=== PATIENT | male | born 1955 | race Caucasian/White ===

== ENCOUNTER 2024-03-27 08:57 | Outpatient (AMB) | payer MEDICARE, SELFPAY ==
--- NOTE | 2024-03-27 09:14 | A.OFFPC_ITS ---
Vital Signs 03/27/24 09:19 Height 5 ft 8 in Weight 180 lb BMI 27.4 BP 124/64 Blood Pressure Location Rt brachial Position Sitting Respiration 14 Pulse 84 Pulse Source Pulse Oximeter Temp 98.6 F Temp Source Oral Pulse Oximetry (%) 100 Oxygen Delivery Method Room Air Intake Visit Reasons: transfer from [facility] Heart procedure Intake Note: New patient visit Gate Keeper Required: No Allergies No Known Allergies Allergy (Verified 03/27/24 09:15) Medication List - Last Reconciled 03/27/24 by Nga Thomas PA-C aspirin 81 mg PO DAILY atorvastatin 40 mg PO DAILY clopidogrel 75 mg PO DAILY losartan 50 mg PO DAILY nitroglycerin 0.6 mg sublingual BID Tobacco use date assessed: 03/27/24 Fall risk assessment: No Falls in past year Last assessed Fall Risk: 03/27/24 Dental Screening Dental Screen Date: 03/27/24 Did you have a dental visit in the last 12 months?: Yes Did you have a dental problem in the last 6 months where you did not have access to dental care?: No Was dental information given to patient?: Patient has dentist HPI transfer from [facility] Heart procedure HPI Details Patient is a 68-year-old male with a significant past medical history of former smoker (<5 years), hypertension, hyperlipidemia, anxiety, depression, and CAD, s/p PCI with placement of stent who presents today for a hospital follow up and transfer of care. He was previously a patient at [facility] of Dr. Salazra. CV: On 01/18/2024 he presented for an elective cardiac catheterization after having an abnormal treadmill stress test. The catheterization showed severe proximal LAD stenosis. He underwent PCI with placement of stent. He also had balloon angioplasty with excellent angioplasty results. There was also moderate LCx and RCA disease. Has been feeling well since his PCI with Dr. Guo. States that his energy is significantly improved. He denies any chest pain or shortness a breath. His blood pressure today in the office is 124/64. He is currently on aspirin, Plavix, atorvastatin 40 mg, and losartan 50 mg. Denies needing to use nitro. He is going to cardiac rehab and eating healthy. Psych: States that his anxiety and depression are well-controlled with lorazepam as needed. He gets 1-2 prescriptions a year of the lorazepam. He typically gets it filled in the summertime because he gets anxious with cherrie henriquez. They do a lot of traveling in the summer and go camping. Colonoscopy: Due this year. States that he was called by [facility] and plans to make an appointment with them. PSA: Cesar Does not recall ever having an AAA screen. He is a former smoker. He has not had his carotids screened. He does sometimes get a little lightheaded if he gets up quickly or bends down and lifts this had fast. [facility] Medical History (Updated 03/27/24 @ 09:58 by Margarita Cooper CMA) Palpitations Seasonal allergies Onychomycosis Asthma Former smoker Generalized anxiety disorder with panic attacks IFG (impaired fasting glucose) CAD, multiple vessel Hyperlipidemia HTN (hypertension), benign Surgical History (Updated 03/27/24 @ 09:37 by Nga Thomas PA-C) S/P coronary artery stent placement Family History (Updated 03/27/24 @ 09:57 by Margarita Cooper CMA) Mother Asthma HTN (hypertension) Hypercholesteremia Social History (Updated 03/27/24 @ 09:17 by Margarita Cooper CMA) Housing: House Patient Tobacco Use Status: Former Tobacco user Cigarette Packs Per Day: 0.5 Years Smoked: 2 years quit 47 years ago e-Cigarette/Vaping Use: Never Used Substance Use Type: Former Substance User and Marijuana service: Yes Current occupational status: employed Current occupation: self employed Current occupational exposures/hazards: No Cognitive needs: No Hearing needs: No Vision needs: No Questionnaire PHQ-9 Over the last 2 weeks, how often have you been bothered by any of the following problems? 1. Little interest or pleasure in doing things: not at all 2. Feeling down, depressed, or hopeless: not at all 3. Trouble falling or staying asleep, or sleeping too much: not at all 4. Feeling tired or having little energy: not at all 5. Poor appetite or overeating: not at all 6. Feeling bad about yourself - or that you are a failure or have let yourself or your family down: not at all 7. Trouble concentrating on things, such as reading the newspaper or watching television: not at all 8. Moving or speaking so slowly that other people could have noticed. Or the opposite - being so fidgety or restless that you have been moving around a lot more than usual: not at all 9. Thoughts that you would be better off or of hurting yourself in some way: not at all Total score: 0 Depression Screening Interpretation: Negative Depression Screening Done: Yes [id number] - PHQ-9 Billing: Yes Source: Developed by Drs. Papi Patterson, Elizabeth Khan, Driss Marquez and colleagues, with an educational ana from [employer]. Thrive Questionnaire Date Thrive assessed: 03/27/24 I am a: Patient What is your living situation today?: I have a steady place to live Within the past 12 months, did the food you bought not last and you didn't have the money to get more?: Never true Within the past 12 months, did you worry whether your food would run out before you got money to buy more?: Never true Do you have trouble paying for medicines?: No Do you have trouble getting transportation to medical appointments?: No Do you have trouble paying your heating and electricity bill?: No Do you have trouble taking care of your child, family member or friend?: No Do you have trouble with day-to-day activities such as bathing, preparing meals, shopping, managing finances, etc.?: No Are you currently unemployed and looking for a job?: No Are you interested in more education?: No Please select the resources that you would like help with: None Currently or been in a relationship where the following occur: no concerns reported THRIVE Score: 0 AUDIT C Alcohol Use Questionnaire (AUDIT-C) 1. How often do you have a drink containing alcohol?: 2-4 times a month 2. How many drinks containing alcohol do you have on a typical day when you are drinking?: 1 or 2 3. How often do you have six or more drinks on one occasion?: Never Total Score: 2 MARKUS-7 AMB Questionnaire MARKUS-7 Date MARKUS - 7 assessed: 03/27/24 Feeling nervous, anxious, or on edge: 0 = Not at all Not being able to stop or control worryin = Not at all Worrying too much about different things: 0 = Not at all Trouble relaxin = Not at all Being so restless that it is hard to sit still: 0 = Not at all Becoming easily annoyed or irritable: 0 = Not at all Feeling afraid as if something awful might happen: 0 = Not at all Total MARKUS-7 score (0-4 normal; 5-9 mild; 10-14 moderate; 15-21 severe): 0 Source: Developed by Drs. Papi Patterson, Elizabeth Khan, Driss Marquez and colleagues, with an educational ana from [employer]. MARKUS-7 Assessment Billing MARKUS-7 Assessment Tool: MARKUS-7 Assessment 73674 Physical exam (Primary Care) Vital Signs: Last Vital Signs Temp 98.6 F 03/27/24 09:19 Pulse 84 03/27/24 09:19 Resp 14 03/27/24 09:19 BP 124/64 03/27/24 09:19 Pulse Ox 100 03/27/24 09:19 Oxygen Delivery Method Room Air 03/27/24 09:19 BMI result Body Mass Index 42.6 The BMI listed above is incorrect. His BMI is 27.4. I did adjust this in the vitals. Tobacco/Smoking Status: Tobacco use Status Tobacco use date assessed 03/27/24 03/27/24 09:24 Patient Tobacco Use Status Former Tobacco user 03/27/24 09:24 e-Cigarette/Vaping Use Never Used 03/27/24 09:24 PHQ-9: PHQ-9 Score PHQ-9: Total score 0 03/27/24 09:24 Depression Screening Interpretation: Negative Thrive Assessment: Date of Thrive Assessment Date Thrive assessed 03/27/24 03/27/24 09:24 Currently or been in a relationship where the following occur: no concerns reported Const Orientation/consciousness: patient oriented x3 HENMT Ears: hearing grossly normal bilaterally and TM's normal bilaterally Eyes Pupils: Equal, round and reactive pupils present EOM: EOMs intact bilaterally Neck Thyroid: Thyroid normal Carotids: other (No bruit noted) Lymphatic: no lymphadenopathy noted Resp Auscultation: clear to auscultation bilaterally Cardio Rate: regular rate Rhythm: regular rhythm Heart sounds: S1 normal heart sound present and S2 normal heart sound present GI Inspection: Yes normal to inspection Palpation (GI): Soft to palpation and Other GI palpation findings present (nontender, no cva tenderness) Auscultation: normoactive bowel sounds Rectal Exam - Male: Yes deferred Skin General skin exam: no rashes or lesions noted Neuro General: patient oriented x3, gait normal and no focal motor deficits Cranial nerves: Yes Equal, round and reactive pupils present Assessment and Plan Assessment & Plan (1) HTN (hypertension), benign: Code(s): I10 - Essential (primary) hypertension Plan: WNL. continue current treatment meds (2) Hyperlipidemia: Code(s): E78.5 - Hyperlipidemia, unspecified Qualifiers: Hyperlipidemia type: pure hypercholesterolemia Qualified Code(s): E78.00 - Pure hypercholesterolemia, unspecified Plan: tolerating atorvastatin. no myalgias. will check lfts and lipids. (3) CAD, multiple vessel: Code(s): I25.10 - Atherosclerotic heart disease of [place] coronary artery without angina pectoris Plan: continue follow up with Dr. Guo. (4) S/P coronary artery stent placement: Code(s): Z95.5 - Presence of coronary angioplasty implant and graft Plan: feeling well (5) IFG (impaired fasting glucose): Code(s): R73.01 - Impaired fasting glucose Plan: a1c ordered. will follow up pending test results (6) Generalized anxiety disorder with panic attacks: Code(s): F41.1 - Generalized anxiety disorder; F41.0 - Panic disorder [episodic paroxysmal anxiety] Plan: Will refill ativan today for travel. We discussed risks and benefits and adverse effects of this medication. He has been on this for about 30 years as needed. Plan Labs ordered today including CBC, CMP, lipids, TSH and PSA. Aortic aneurysm screening ordered. Carotid ultrasound given the postural dizziness and history of CAD and hyperlipidemia. We will follow up pending test results. Advised patient to schedule his colonoscopy. Follow up in 3 months. Sooner if needed. Patient understands and agrees with the plan. Orders: Orders Complete Blood Count Auto Diff Today E78.5 - Hyperlipidemia, unspecified, F41.0 - Panic disorder [episodic paroxysmal anxiety], F41.1 - Generalized anxiety disorder, I10 - Essential (primary) hypertension, R73.01 - Impaired fasting glucose, Z95.5 - Presence of coronary angioplasty implant and graft Comprehensive Met. Panel Today E78.5 - Hyperlipidemia, unspecified, F41.0 - Panic disorder [episodic paroxysmal anxiety], F41.1 - Generalized anxiety disorder, I10 - Essential (primary) hypertension, R73.01 - Impaired fasting glucose, Z95.5 - Presence of coronary angioplasty implant and graft US carotid duplex BI Today E78.00 - Pure hypercholesterolemia, unspecified, I10 - Essential (primary) hypertension, I25.10 - Atherosclerotic heart disease of [place] coronary artery without angina pectoris, R42 - Dizziness and giddiness US abdominal aortic aneurysm Today Z13.6 - Encounter for screening for cardiovascular disorders, Z87.891 - Personal history of nicotine dependence PSA, Ultra Sensitive Today E78.5 - Hyperlipidemia, unspecified, F41.0 - Panic disorder [episodic paroxysmal anxiety], F41.1 - Generalized anxiety disorder, I10 - Essential (primary) hypertension, R06.09 - Other forms of dyspnea, R73.01 - Impaired fasting glucose, Z95.5 - Presence of coronary angioplasty implant and graft TSH reflex Free T4 Today E78.5 - Hyperlipidemia, unspecified, F41.0 - Panic disorder [episodic paroxysmal anxiety], F41.1 - Generalized anxiety disorder, I10 - Essential (primary) hypertension, R73.01 - Impaired fasting glucose, Z95.5 - Presence of coronary angioplasty implant and graft Lipid Panel Today E78.5 - Hyperlipidemia, unspecified, F41.0 - Panic disorder [episodic paroxysmal anxiety], F41.1 - Generalized anxiety disorder, I10 - Essential (primary) hypertension, R73.01 - Impaired fasting glucose, Z95.5 - Presence of coronary angioplasty implant and graft Hemoglobin A1c Today R73.01 - Impaired fasting glucose Medications: New lorazepam 0.5 mg PO BID 30 days PRN 60 tabs 0RF anxiety lorazepam 0.5 mg PO BID 30 days PRN 30 tabs 0RF anxiety Coding Level of Care Code Est Pt Level 4 (55585) Complex EM visit Add On G2211 Diagnoses HTN (hypertension), benign I10 Pure hypercholesterolemia E78.00 Hyperlipidemia type: pure hypercholesterolemia CAD, multiple vessel I25.10 S/P coronary artery stent placement Z95.5 IFG (impaired fasting glucose) R73.01 Generalized anxiety disorder with panic attacks F41.1; F41.0 Additional Codes MARKUS-7 Assessment Billing - MARKUS-7 Assessment Tool: MARKUS-7 Assessment [id number] ([id number])
[2024-03-27 09:19] VITALS: BP 124/64; PULSE 84; RESP 14; TEMP 37; O2SAT 100; BMI 27.4
== END 2024-03-27 09:57 | disposition home or self-care (01) ==
PROVIDERS: Visit Provider Physician Assistant
DX: I10 Essential (primary) hypertension (principal); E78.00 Pure hypercholesterolemia, unspecified; I25.10 Atherosclerotic heart disease of native coronary artery without angina pectoris; Z95.5 Presence of coronary angioplasty implant and graft; R73.01 Impaired fasting glucose; F41.1 Generalized anxiety disorder; F41.0 Panic disorder [episodic paroxysmal anxiety]
CPT/HCPCS: 99214; G2211

== ENCOUNTER 2024-04-17 08:19 | Outpatient (REF) | payer MEDICARE, SELFPAY ==
--- NOTE | ~2024-04-17 | US_ITS ---
EXAMINATION: US EXTRACRANIAL CAROTID DUPLEX, BILATERAL CLINICAL INFORMATION: Former smoker. Coronary artery disease. COMPARISON: None available. TECHNIQUE: Real-time ultrasound and Doppler techniques (integrating B-mode 2-D vascular images, Doppler spectral analysis and color-flow Doppler imaging) were utilized to interrogate the extracranial carotid arteries, the vertebral arteries and proximal subclavian arteries bilaterally. The degree of stenosis is determined by criteria similar to NASCET. FINDINGS: Right Side: 1. There is mild atherosclerotic plaque seen in the bifurcation/proximal ICA region. 2. The common carotid artery PSV proximally is 132 cm/s and distally 109 cm/s. 3. The proximal internal carotid artery velocities are 90 cm/s systolic and 29 cm/s diastolic. 4. The proximal external carotid artery PSV is 94 cm/s. 5. The vertebral artery shows antegrade flow. 6. The subclavian artery waveforms are normal. Left Side: 1. There is mild atherosclerotic plaque seen in the bifurcation/proximal ICA region. 2. The common carotid artery PSV proximally is 147 cm/s and distally 87 cm/s. 3. The proximal internal carotid artery velocities are 77 cm/s systolic and 29 cm/s diastolic. 4. The proximal external carotid artery PSV is 91 cm/s. 5. The vertebral artery shows antegrade flow. 6. The subclavian artery waveforms are normal. US/US carotid duplex BI IMPRESSION: 1. RIGHT: Minimal, non-hemodynamically significant stenosis of the proximal right internal carotid artery corresponding to a 0-49% stenosis by velocity criteria. 2. LEFT: Minimal, non-hemodynamically significant stenosis of the proximal left internal carotid artery corresponding to a 0-49% stenosis by velocity criteria.
--- NOTE | ~2024-04-17 | US_ITS ---
EXAMINATION: US RETROPERITONEAL LIMITED (AORTA) CLINICAL INFORMATION: Encountered for screening for cardiovascular disorders. COMPARISON: None available. TECHNIQUE: Rosado-scale, color Doppler and spectral Doppler evaluation of the abdominal aorta. FINDINGS: The aorta is mildly atherosclerotic. The measurements of the aorta in maximum AP and transverse dimensions respectively are as follows: Proximal: 2.1 x 1.7 cm. Mid: 1.8 x 1.8 cm. Distal: 1.2 x 1.4 cm. PSV: 84 cm/s. The measurements of the common iliac arteries in maximum AP and TRV dimensions are as follows: Right Common Iliac Artery: 1.1 x 1.1 cm. Left Common Iliac Artery: 1.3 x 1.1 cm. US/US abdominal aortic aneurysm IMPRESSION: Negative for abdominal aortic aneurysm.
== END 2024-04-17 08:20 | disposition home or self-care (01) ==
LOC: HO.US 08:19
PROVIDERS: PCP Physician Assistant; Visit Provider Physician Assistant
DX: I25.10 Atherosclerotic heart disease of native coronary artery without angina pectoris (principal); E78.00 Pure hypercholesterolemia, unspecified; I10 Essential (primary) hypertension; R42 Dizziness and giddiness; Z87.891 Personal history of nicotine dependence
CPT/HCPCS: 76706; 93880

== ENCOUNTER 2024-06-19 08:08 | Outpatient (REF) | payer MEDICARE, SELFPAY ==
[2024-06-19 10:21] LABS: MANUAL DIFF FLAG NO
[2024-06-19 10:25] LABS: Basophils Absolute Auto 0.1 X10*3/uL (0.0-0.2); Basophils Percent Auto 1.3 % (0-2); Eosinophils Absolute Auto 0.4 X10*3/uL (0.0-0.4); Hematocrit 43.7 % (42.0-52.0); Hemoglobin 14.5 g/dl (14.0-18.0); Imm Gran Abs Auto 0.01 X10*3/uL (0.00-0.03); Imm Gran Pct Auto 0.2 % (0.0-0.4); Lymphocytes Absolute Auto 1.1 X10*3/uL (1.2-4.9); Lymphocytes Percent Auto 23.7 % (20-40); Mean Corpuscular HGB Conc 33.2 g/dl (31.0-36.0); Mean Corpuscular Hemoglobin 31.9 pg (27.0-33.0); Mean Corpuscular Volume 96.3 fL (80.0-98.0); Mean Platelet Volume 10.4 fL (9.4-12.4); Monocytes Absolute Auto 0.7 X10*3/uL (0.1-1.2); Neutrophils Absolute Auto 2.5 x10*3/uL (2.0-8.3); Neutrophils Percent Auto 51.8 % (45-73); Platelet Count 225 X10*3/uL (160-400); Red Blood Count 4.54 X10*6/uL (4.60-5.80); Red Cell Distribution Width 12.4 % (11.0-16.0); White Blood Count 4.7 X10*3/uL (4.8-10.8)
[2024-06-19 10:43] LABS: Estimated Average Glucose 117 mg/dL; Hemoglobin A1c % 5.7 % (<6.0)
[2024-06-19 11:09] LABS: Alanine Aminotransferase 24 U/L (0-40); Albumin Level 4.7 g/dL (3.5-5.0); Alkaline Phosphatase 59 U/L (39-117); Anion Gap 14 (12-20); Aspartate Amino Transferase 24 U/L (5-37); Bilirubin Total 0.4 mg/dL (0.0-1.0); Blood Urea Nitrogen 14 mg/dL (9-16); Carbon Dioxide 27 mmol/L (22-29); Chloride 104 mmol/L (96-108); Cholesterol 141 mg/dL (<200); Estimated Glomerular Filt Rate > 60; Glucose Random 107 mg/dL (60-115); HDL Cholesterol 36 mg/dL (>40); LDL Cholesterol Calculated 84 mg/dL (<100); Potassium 4.6 mmol/L (3.3-5.1); Sodium 140 mmol/L (135-145); Total Protein 7.6 g/dL (6.5-8.0); Triglycerides 107 mg/dL (<150)
[2024-06-19 11:30] LABS: TSH reflex Free T4 1.29 uIU/mL (0.32-4.0)
[2024-07-04 02:03] LABS: PSA, Ultra Sensitive 1.86 ng/mL
== END 2024-06-19 08:09 | disposition home or self-care (01) ==
LOC: HO.HMGCLDS 08:08
PROVIDERS: PCP Physician Assistant; Visit Provider Physician Assistant
DX: Z12.5 Encounter for screening for malignant neoplasm of prostate (principal); F41.1 Generalized anxiety disorder; F41.0 Panic disorder [episodic paroxysmal anxiety]; R73.01 Impaired fasting glucose; E78.5 Hyperlipidemia, unspecified; I10 Essential (primary) hypertension; R06.09 Other forms of dyspnea; Z95.5 Presence of coronary angioplasty implant and graft
CPT/HCPCS: 36415; 80053; 80061; 83036; 84153; 84443; 85025

== ENCOUNTER 2024-06-25 09:43 | Outpatient (AMB) | payer OTHER, SELFPAY ==
--- NOTE | 2024-06-25 10:00 | MHC.PC.OV ---
Vital Signs 06/25/24 10:06 Height 5 ft 8 in Weight 169 lb 8 oz BMI 25.8 BP 118/82 Blood Pressure Location Lt brachial Position Sitting Respiration 14 Pulse 72 Pulse Source Pulse Oximeter Pulse Oximetry (%) 98 Oxygen Delivery Method Room Air Intake Visit Reasons: f/u bp, anxiety Intake Note: Follow up htn and anxiety. Blood work results. Allergies No Known Allergies Allergy (Verified 03/27/24 09:15) Medication List - Last Reconciled 06/25/24 by Nga Thomas PA-C aspirin 81 mg PO DAILY atorvastatin 40 mg PO DAILY clopidogrel 75 mg PO DAILY lorazepam 0.5 mg PO BID PRN 30 days losartan 50 mg PO DAILY nitroglycerin 0.6 mg sublingual BID Tobacco use date assessed: 03/27/24 Dental Screening Dental Screen Date: 03/27/24 HPI f/u bp, anxiety HPI Details Patient is a 68-year-old male with a significant past medical history of former smoker (<5 years), hypertension, hyperlipidemia, anxiety, depression, and CAD, s/p PCI with placement of stent who presents today for a follow up. He was previously a patient at [facility] of Dr. Salazar. -he does complain today that his right eye is itchy, watery and was crusted this morning. He wonders if he has pink eye. It is not painful and no vision changes but it does feel gritty. He has not tried anything for this. CV: His blood pressure today in the office is 118/82. He is currently on aspirin, Plavix, atorvastatin 40 mg, and losartan 50 mg. Denies needing to use nitro. He is going to cardiac rehab and eating healthy. Psych: States that his anxiety and depression are well-controlled with lorazepam as needed. He gets 1-2 prescriptions a year of the lorazepam. He typically gets it filled in the summertime because he gets anxious with traveling. They do a lot of traveling in the summer and go camping. Endo: He is a prediabetic and states that he does eat muffins, drinks soda sometimes and has cereal and waffles frequently in the mornings. He does have a family history of diabetes. He believes it is type 2 and states that most people were just managed with their diet. Colonoscopy: Due this year. States that he was called by [facility] and plans to make an appointment with them. PSA: Overdue-pending [facility] Medical History (Updated 06/25/24 @ 13:01 by Nga Thomas PA-C) Palpitations Seasonal allergies Onychomycosis Asthma Former smoker Generalized anxiety disorder with panic attacks IFG (impaired fasting glucose) CAD, multiple vessel Hyperlipidemia HTN (hypertension), benign Surgical History (Updated 03/27/24 @ 09:37 by Nga Thomas PA-C) S/P coronary artery stent placement Family History (Updated 03/27/24 @ 09:57 by Margarita Cooper CMA) Mother Asthma HTN (hypertension) Hypercholesteremia Social History (Updated 03/27/24 @ 09:17 by Margarita Cooper CMA) Housing: House Patient Tobacco Use Status: Former Tobacco user Cigarette Packs Per Day: 0.5 Years Smoked: 2 years quit 47 years ago e-Cigarette/Vaping Use: Never Used Substance Use Type: Former Substance User and Marijuana service: Yes Current occupational status: employed Current occupation: self employed Current occupational exposures/hazards: No Cognitive needs: No Hearing needs: No Vision needs: No Questionnaire Thrive Questionnaire Date Thrive assessed: 03/27/24 MARKUS-7 AMB Questionnaire MARKUS-7 Date MARKUS - 7 assessed: 03/27/24 Source: Developed by Drs. Papi Patterson, Elizabeth Khan, Driss Marquez and colleagues, with an educational ana from [employer]. Physical exam (Primary Care) Vital Signs: Last Vital Signs Pulse 72 06/25/24 10:06 Resp 14 06/25/24 10:06 BP 118/82 06/25/24 10:06 Pulse Ox 98 06/25/24 10:06 Oxygen Delivery Method Room Air 06/25/24 10:06 BMI result Body Mass Index 25.8 Tobacco/Smoking Status: Tobacco use Status Tobacco use date assessed 03/27/24 06/25/24 10:00 Patient Tobacco Use Status Former Tobacco user 06/25/24 10:00 e-Cigarette/Vaping Use Never Used 06/25/24 10:00 Thrive Assessment: Date of Thrive Assessment Date Thrive assessed 03/27/24 06/25/24 10:00 Const Orientation/consciousness: patient oriented x3 HENMT Ears: hearing grossly normal bilaterally General nose exam: No nasal polyps present Face and sinus: Yes sinuses nontender Eyes Eyelids: Yes eyelids normal Conjunctivae: conjunctival abnormal right conjunctival injection and discharge purulent Sclerae: sclerae normal Corneas: corneas normal Pupils: Equal, round and reactive pupils present EOM: EOMs intact bilaterally Direct Ophthalmoscopy: normal light reflex Neck Thyroid: Thyroid normal Lymphatic: no lymphadenopathy noted Resp Auscultation: clear to auscultation bilaterally Cardio Rate: regular rate Rhythm: regular rhythm Heart sounds: S1 normal heart sound present and S2 normal heart sound present GI Inspection: Yes normal to inspection Palpation (GI): Soft to palpation and Other GI palpation findings present (nontender, no cva tenderness) Auscultation: normoactive bowel sounds Rectal Exam - Male: Yes deferred Skin General skin exam: no rashes or lesions noted Neuro General: patient oriented x3, gait normal and no focal motor deficits Cranial nerves: Yes Equal, round and reactive pupils present Results Reviewed Results Reviewed: US/US carotid duplex BI IMPRESSION: 1. RIGHT: Minimal, non-hemodynamically significant stenosis of the proximal right internal carotid artery corresponding to a 0-49% stenosis by velocity criteria. 2. LEFT: Minimal, non-hemodynamically significant stenosis of the proximal left internal carotid artery corresponding to a 0-49% stenosis by velocity criteria. Laboratory Tests 06/19/24 08:12 WBC 4.7 L RBC 4.54 L Hgb 14.5 Hct 43.7 Plt Count 225 Sodium 140 Potassium 4.6 Chloride 104 BUN 14 Creatinine 0.89 Estimated GFR > 60 Estimat Average Glucose 117 Hemoglobin A1c % 5.7 Calcium 10.0 AST 24 ALT 24 Triglycerides 107 Cholesterol 141 LDL Cholesterol, Calc 84 HDL Cholesterol 36 L Assessment and Plan Assessment & Plan (1) Prediabetes: Code(s): R73.03 - Prediabetes Plan: a1c 5.7. discussed diet changes, limiting pastries and pasta. he is going to cut out soda. (2) Hyperlipidemia: Code(s): E78.5 - Hyperlipidemia, unspecified Qualifiers: Hyperlipidemia type: pure hypercholesterolemia Qualified Code(s): E78.00 - Pure hypercholesterolemia, unspecified Plan: continue lipitor 40 mg (3) HTN (hypertension), benign: Code(s): I10 - Essential (primary) hypertension Plan: wnl continue current plan (4) Bacterial conjunctivitis of right eye: Code(s): H10.9 - Unspecified conjunctivitis Plan: We will start erythromycin ointment. Advised to follow up if no improvement or if anything worsens or changes. Encouraged warm compresses. Orders: Orders Lipid Panel 6 Months E78.00 - Pure hypercholesterolemia, unspecified, I10 - Essential (primary) hypertension, R73.03 - Prediabetes Complete Blood Count Auto Diff 6 Months E78.00 - Pure hypercholesterolemia, unspecified, I10 - Essential (primary) hypertension, R73.03 - Prediabetes Comprehensive [place]. Panel Fast 6 Months E78.00 - Pure hypercholesterolemia, unspecified, I10 - Essential (primary) hypertension, R73.03 - Prediabetes Hemoglobin A1c 6 Months E78.00 - Pure hypercholesterolemia, unspecified, I10 - Essential (primary) hypertension, R73.03 - Prediabetes Medications: New erythromycin 1 appl ophthalmic-Right BID 10 days 3.5 grams 0RF clotrimazole 1% 1 appl topical BID 2 weeks 45 grams 1RF Coding Level of Care Code Est Pt Level 4 (31785) Complex EM visit Add On G2211 Diagnoses Prediabetes R73.03 Pure hypercholesterolemia E78.00 Hyperlipidemia type: pure hypercholesterolemia HTN (hypertension), benign I10 Bacterial conjunctivitis of right eye H10.9
[2024-06-25 10:06] VITALS: BP 118/82; PULSE 72; RESP 14; O2SAT 98; BMI 25.8
== END 2024-06-25 11:17 | disposition home or self-care (01) ==
PROVIDERS: PCP Physician Assistant; Visit Provider Physician Assistant
DX: R73.03 Prediabetes (principal); E78.00 Pure hypercholesterolemia, unspecified; I10 Essential (primary) hypertension; H10.9 Unspecified conjunctivitis
CPT/HCPCS: 99214

== ENCOUNTER 2024-12-31 10:10 | Outpatient (AMB) | payer MEDICARE, SELFPAY ==
--- NOTE | 2024-12-31 10:18 | A.OFFPC_ITS ---
Vital Signs 12/31/24 10:20 Height 5 ft 8 in Weight 176 lb 6 oz BMI 26.8 BP 138/72 Blood Pressure Location Lt brachial Respiration 14 Pulse 70 Pulse Source Pulse Oximeter Pulse Oximetry (%) 98 Oxygen Delivery Method Room Air Intake Visit Reasons: bp follow up Intake Note: Blood pressure follow. Had echo done in September 2024. Needs refill on Lorazepam. [employer] Required: No Allergies No Known Allergies Allergy (Verified 12/31/24 10:19) Medication List - Last Reconciled 12/31/24 by Nga Thomas PA-C aspirin 81 mg PO DAILY atorvastatin 40 mg PO DAILY clopidogrel 75 mg PO DAILY clotrimazole 1% 1 appl topical BID 2 weeks erythromycin 1 appl ophthalmic-Right BID 10 days fluticasone propionate 50 mcg/actuation (Flonase Allergy Relief) 1 spray intranasal BID lorazepam 0.5 mg PO BID PRN 30 days losartan 50 mg PO DAILY nitroglycerin 0.6 mg sublingual BID Tobacco use date assessed: 03/27/24 Dental Screening Dental Screen Date: 03/27/24 HPI bp follow up HPI Details Patient is a 69-year-old male with a significant past medical history of former smoker (<5 years), hypertension, hyperlipidemia, anxiety, depression, and CAD, s/p PCI with placement of stent who presents today for a follow up. CV: His blood pressure today in the office is 138/72. He is currently on aspirin, Plavix, atorvastatin 40 mg, and losartan 50 mg. Denies needing to use nitro. He is following with Dr. Guo. He is s/p LAD stent 02/03/2024. He did just follow with cardiology and had an echo which was overall WNL and unchanged. Psych: States that his anxiety and depression are well-controlled with lorazepam as needed. He gets 1-2 prescriptions a year of the lorazepam. He typically gets it filled in the summertime because he gets anxious with traveling. They do a lot of traveling in the summer and go camping. Needs refill today. Endo: He is a prediabetic with his last A1c of 5.7 and states that he does eat muffins, drinks soda sometimes and has cereal and waffles frequently in the mornings. He does have a family history of diabetes. He believes it is type 2 and states that most people were just managed with their diet. Colonoscopy: Due this year. States that he was called by [facility] and plans to make an appointment with them. PSA: WNL -june 2024 [facility] Medical History (Updated 06/25/24 @ 13:01 by Nga Thomas PA-C) Palpitations Seasonal allergies Onychomycosis Asthma Former smoker Generalized anxiety disorder with panic attacks IFG (impaired fasting glucose) CAD, multiple vessel Hyperlipidemia HTN (hypertension), benign Surgical History (Updated 03/27/24 @ 09:37 by Nga Thomas PA-C) S/P coronary artery stent placement Family History (Updated 03/27/24 @ 09:57 by Margarita Cooper CMA) Mother Asthma HTN (hypertension) Hypercholesteremia Social History (Updated 03/27/24 @ 09:17 by Margarita Cooper CMA) Housing: House Alcohol intake: current Patient Tobacco Use Status: Former Tobacco user Cigarette Packs Per Day: 0.5 Years Smoked: 2 years quit 47 years ago e-Cigarette/Vaping Use: Never Used Substance Use Type: Former Substance User and Marijuana service: Yes Current occupational status: employed Current occupation: self employed Current occupational exposures/hazards: No Cognitive needs: No Hearing needs: No Vision needs: No Questionnaire PHQ-9 Over the last 2 weeks, how often have you been bothered by any of the following problems? 1. Little interest or pleasure in doing things: not at all 2. Feeling down, depressed, or hopeless: not at all 3. Trouble falling or staying asleep, or sleeping too much: not at all 4. Feeling tired or having little energy: not at all 5. Poor appetite or overeating: not at all 6. Feeling bad about yourself - or that you are a failure or have let yourself or your family down: not at all 7. Trouble concentrating on things, such as reading the newspaper or watching television: not at all 8. Moving or speaking so slowly that other people could have noticed. Or the opposite - being so fidgety or restless that you have been moving around a lot more than usual: not at all 9. Thoughts that you would be better off or of hurting yourself in some way: not at all Total score: 0 Depression Screening Interpretation: Negative Depression Screening Done: Yes 35396 - PHQ-9 Billing: Yes Source: Developed by Drs. Papi Patterson, Elizabeth Khan, Driss Marquez and colleagues, with an educational ana from [employer]. Thrive Questionnaire Date Thrive assessed: 12/24/24 I am a: Patient What is your living situation today?: I have a steady place to live Within the past 12 months, did the food you bought not last and you didn't have the money to get more?: Never true Within the past 12 months, did you worry whether your food would run out before you got money to buy more?: Never true Do you have trouble paying for medicines?: No Do you have trouble getting transportation to medical appointments?: No Do you have trouble paying your heating and electricity bill?: No Do you have trouble taking care of your child, family member or friend?: No Do you have trouble with day-to-day activities such as bathing, preparing meals, shopping, managing finances, etc.?: No Are you currently unemployed and looking for a job?: No Are you interested in more education?: No Please select the resources that you would like help with: None Currently or been in a relationship where the following occur: No concerns reported THRIVE Score: 0 AUDIT C Alcohol Use Questionnaire (AUDIT-C) 3. How often do you have six or more drinks on one occasion?: Less than monthly Total Score: 1 MARKUS-7 AMB Questionnaire MARKUS-7 Date MARKUS - 7 assessed: 12/31/24 Feeling nervous, anxious, or on edge: 0 = Not at all Not being able to stop or control worryin = Not at all Worrying too much about different things: 0 = Not at all Trouble relaxin = Not at all Being so restless that it is hard to sit still: 0 = Not at all Becoming easily annoyed or irritable: 0 = Not at all Feeling afraid as if something awful might happen: 0 = Not at all Total MARKUS-7 score (0-4 normal; 5-9 mild; 10-14 moderate; 15-21 severe): 0 Source: Developed by Elizabeht Mccarthy, Driss Marquez and colleagues, with an educational ana from [employer]. MARKUS-7 Assessment Billing MARKUS-7 Assessment Tool: MARKUS-7 Assessment 66539 Physical exam (Primary Care) Tobacco/Smoking Status: Tobacco use Status Tobacco use date assessed 03/27/24 06/25/24 10:00 Patient Tobacco Use Status Former Tobacco user 06/25/24 10:00 e-Cigarette/Vaping Use Never Used 06/25/24 10:00 Depression Screening Interpretation: Negative Thrive Assessment: Date of Thrive Assessment Date Thrive assessed 12/24/24 12/24/24 15:18 Currently or been in a relationship where the following occur: No concerns reported Const Orientation/consciousness: patient oriented x3 HENMT Ears: hearing grossly normal bilaterally Neck Thyroid: Thyroid normal Lymphatic: no lymphadenopathy noted Resp Auscultation: clear to auscultation bilaterally Cardio Rate: regular rate Rhythm: regular rhythm Heart sounds: S1 normal heart sound present and S2 normal heart sound present GI Inspection: Yes normal to inspection Palpation (GI): Soft to palpation and Other GI palpation findings present (nontender, no cva tenderness) Auscultation: normoactive bowel sounds Rectal Exam - Male: Yes deferred Skin General skin exam: no rashes or lesions noted Neuro General: patient oriented x3, gait normal and no focal motor deficits Results Reviewed Results Reviewed: Laboratory Tests 06/19/24 08:12 WBC 4.7 L RBC 4.54 L Hgb 14.5 Hct 43.7 Plt Count 225 Sodium 140 Potassium 4.6 Chloride 104 Carbon Dioxide 27 Anion Gap 14 BUN 14 Creatinine 0.89 Estimated GFR > 60 Hemoglobin A1c % 5.7 Calcium 10.0 AST 24 ALT 24 Cholesterol 141 LDL Cholesterol, Calc 84 HDL Cholesterol 36 L PSA Ultra-Sensitive 1.86 TSH 1.29 US/US carotid duplex BI IMPRESSION: 1. RIGHT: Minimal, non-hemodynamically significant stenosis of the proximal right internal carotid artery corresponding to a 0-49% stenosis by velocity criteria. 2. LEFT: Minimal, non-hemodynamically significant stenosis of the proximal left internal carotid artery corresponding to a 0-49% stenosis by velocity criteria. Coding Level of Care Code Est Pt Level 4 (98885) Complex EM visit Add On G2211 Diagnoses HTN (hypertension), benign I10 Pure hypercholesterolemia E78.00 Hyperlipidemia type: pure hypercholesterolemia Prediabetes R73.03 Additional Codes MARKUS-7 Assessment Billing - MARKUS-7 Assessment Tool: MARKUS-7 Assessment 29696 ([id number]) PHQ-9 - 11964 - PHQ-9 Billing: Yes ([id number]) Assessment & Plan Assessment & Plan (1) HTN (hypertension), benign: Code(s): I10 - Essential (primary) hypertension Category: Medical Plan: continue current plan (2) Hyperlipidemia: Code(s): E78.5 - Hyperlipidemia, unspecified Category: Medical Qualifiers: Hyperlipidemia type: pure hypercholesterolemia Qualified Code(s): E78.00 - Pure hypercholesterolemia, unspecified Plan: will check lipids and lfts, advised continue with the atorvastatin and healthy diet (3) Prediabetes: Code(s): R73.03 - Prediabetes Category: Medical Plan: will monitor Orders: Orders UA CC w/rflx Micro + Cult Today E78.00 - Pure hypercholesterolemia, unspecified, I10 - Essential (primary) hypertension, R73.03 - Prediabetes, Z13.220 - Encounter for screening for lipoid disorders Medications: Refilled 2 lorazepam 0.5 mg PO BID 30 days PRN 60 tabs 0RF anxiety
[2024-12-31 10:20] VITALS: BP 138/72; PULSE 70; RESP 14; O2SAT 98; BMI 26.8
== END 2024-12-31 10:37 | disposition home or self-care (01) ==
PROVIDERS: PCP Physician Assistant; Visit Provider Physician Assistant
DX: I10 Essential (primary) hypertension (principal); E78.00 Pure hypercholesterolemia, unspecified; R73.03 Prediabetes

== ENCOUNTER → 2024-12-31 10:10 | Outpatient (BNVA) | payer MEDICARE, SELFPAY | PROVIDERS: PCP Physician Assistant; Visit Provider Physician Assistant | DX: I10 Essential (primary) hypertension (principal); E78.00 Pure hypercholesterolemia, unspecified; R73.03 Prediabetes | CPT/HCPCS: 96127; 99212 ==

== ENCOUNTER 2025-01-01 07:24 | Outpatient (REF) | payer MEDICARE, SELFPAY ==
[2025-01-01 10:05] LABS: MANUAL DIFF FLAG NO
[2025-01-01 10:16] LABS: Basophils Absolute Auto 0.1 X10*3/uL (0.0-0.2); Basophils Percent Auto 1.4 % (0-2); Eosinophils Absolute Auto 0.5 X10*3/uL (0.0-0.4); Eosinophils Percent Auto 7.2 % (0-4); Hematocrit 41.9 % (42.0-52.0); Hemoglobin 14.1 g/dl (14.0-18.0); Imm Gran Abs Auto 0.01 X10*3/uL (0.00-0.03); Imm Gran Pct Auto 0.2 % (0.0-0.4); Lymphocytes Absolute Auto 1.5 X10*3/uL (1.2-4.9); Lymphocytes Percent Auto 23.7 % (20-40); Mean Corpuscular HGB Conc 33.7 g/dl (31.0-36.0); Mean Corpuscular Hemoglobin 32.7 pg (27.0-33.0); Mean Corpuscular Volume 97.2 fL (80.0-98.0); Mean Platelet Volume 10.5 fL (9.4-12.4); Monocytes Absolute Auto 0.8 X10*3/uL (0.1-1.2); Monocytes Percent Auto 12.1 % (2-11); Neutrophils Absolute Auto 3.5 x10*3/uL (2.0-8.3); Neutrophils Percent Auto 55.4 % (45-73); Platelet Count 238 X10*3/uL (160-400); Red Blood Count 4.31 X10*6/uL (4.60-5.80); Red Cell Distribution Width 12.4 % (11.0-16.0); White Blood Count 6.4 X10*3/uL (4.8-10.8)
[2025-01-01 10:17] LABS: Appearance Urine Clear; Color Urine Yellow; Glucose Urine UA Negative (Negative); Leukocyte Esterase Urine Negative (Negative); Nitrite Urine Negative (Negative); PH 6.5 (5.0-9.0); Specific Gravity - Urine >= 1.030 (1.005-1.025); Urine Blood Negative (Negative); Urine Ketones Negative (Negative); Urine Protein Negative (Neg-Trace)
[2025-01-01 10:20] LABS: Estimated Average Glucose 117 mg/dL; Hemoglobin A1C 140.0911 umol/L; Hemoglobin A1c % 5.7 % (<6.0); Total Hemoglobin (HGBA1C) 3662.2182 umol/L
[2025-01-01 10:28] LABS: Alanine Aminotransferase 36 U/L (0-40); Albumin Level 4.5 g/dL (3.5-5.0); Alkaline Phosphatase 63 U/L (39-117); Anion Gap 11 (12-20); Aspartate Amino Transferase 31 U/L (5-37); Bilirubin Total 0.3 mg/dL (0.0-1.0); Blood Urea Nitrogen 21 mg/dL (9-16); Calcium 9.2 mg/dL (8.4-10.2); Carbon Dioxide 26 mmol/L (22-29); Chloride 109 mmol/L (96-108); Cholesterol 134 mg/dL (<200); Estimated Glomerular Filt Rate > 60; Glucose Fasting 105 mg/dL (60-99); HDL Cholesterol 37 mg/dL (>40); LDL Cholesterol Calculated 83 mg/dL (<100); Potassium 4.4 mmol/L (3.3-5.1); Sodium 142 mmol/L (135-145); Total Protein 7.5 g/dL (6.5-8.0); Triglycerides 72 mg/dL (<150)
== END 2025-01-01 07:25 | disposition home or self-care (01) ==
LOC: HO.HMGCLDS 07:24
PROVIDERS: PCP Physician Assistant; Visit Provider Physician Assistant
DX: R73.03 Prediabetes (principal); E78.00 Pure hypercholesterolemia, unspecified; I10 Essential (primary) hypertension
CPT/HCPCS: 36415; 80053; 80061; 81003; 83036; 85025

== ENCOUNTER 2025-06-30 06:33 | Outpatient (REF) | payer MEDICARE, SELFPAY ==
[2025-06-30 10:04] LABS: MANUAL DIFF FLAG NO
[2025-06-30 10:18] LABS: Hematocrit 41.7 % (42.0-52.0); Hemoglobin 13.8 g/dl (14.0-18.0); Imm Gran Abs Auto 0.01 X10*3/uL (0.00-0.03); Imm Gran Pct Auto 0.2 % (0.0-0.4); Lymphocytes Absolute Auto 1.3 X10*3/uL (1.2-4.9); Mean Corpuscular HGB Conc 33.1 g/dl (31.0-36.0); Mean Corpuscular Hemoglobin 31.9 pg (27.0-33.0); Mean Corpuscular Volume 96.5 fL (80.0-98.0); NRBC Abs Auto 0.000 X10*3/uL (0.0-0.012); NRBC Pct Auto 0.0 /100WBC (0.0-0.2); Platelet Count 235 X10*3/uL (160-400); Red Blood Count 4.32 X10*6/uL (4.60-5.80); White Blood Count 5.5 X10*3/uL (4.8-10.8)
[2025-06-30 10:26] LABS: Hemoglobin A1C 142.3829 umol/L; Total Hemoglobin (HGBA1C) 3646.3817 umol/L
[2025-06-30 10:35] LABS: Alanine Aminotransferase 20 U/L (0-40); Albumin Level 4.6 g/dL (3.5-5.0); Alkaline Phosphatase 63 U/L (39-117); Anion Gap 11 (12-20); Aspartate Amino Transferase 26 U/L (5-37); Blood Urea Nitrogen 17 mg/dL (9-16); Calcium 9.2 mg/dL (8.4-10.2); Carbon Dioxide 29 mmol/L (22-29); Chloride 106 mmol/L (96-108); Cholesterol 116 mg/dL (<200); Estimated Glomerular Filt Rate > 60; HDL Cholesterol 31 mg/dL (>40); Potassium 4.9 mmol/L (3.3-5.1); Sodium 141 mmol/L (135-145); Total Protein 6.9 g/dL (6.5-8.0); Triglycerides 56 mg/dL (<150)
== END 2025-06-30 06:34 | disposition home or self-care (01) ==
LOC: HO.HMGCLDS 06:33
PROVIDERS: Visit Provider Physician Assistant
DX: I10 Essential (primary) hypertension (principal); I25.10 Atherosclerotic heart disease of native coronary artery without angina pectoris; E78.00 Pure hypercholesterolemia, unspecified; R73.03 Prediabetes; R73.01 Impaired fasting glucose
CPT/HCPCS: 36415; 80053; 80061; 83036; 85025

== ENCOUNTER 2025-07-02 08:17 | Outpatient (AMB) | payer MEDICARE, SELFPAY ==
[2025-07-02 08:23] VITALS: BP 138/68; PULSE 88; RESP 14; TEMP 36.7; O2SAT 98; BMI 25.6
--- NOTE | 2025-07-02 08:23 | MHC.PC.OV ---
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 Allergies No Known Allergies Allergy (Verified 07/02/25 08:25) Medication List - Last Reconciled 07/02/25 by Nga Thomas PA-C albuterol sulfate 90 mcg/actuation (Ventolin HFA) 2 puffs inhalation Q4-6H PRN aspirin 81 mg PO DAILY atorvastatin 40 mg PO DAILY clotrimazole 1% 1 appl topical BID 2 weeks erythromycin 1 appl ophthalmic-Right BID 10 days fluticasone propionate 50 mcg/actuation (Flonase Allergy Relief) 1 spray intranasal BID lorazepam 0.5 mg PO BID PRN 30 days losartan 50 mg PO DAILY nitroglycerin 0.6 mg sublingual BID Tobacco use date assessed: 07/02/25 Fall risk assessment: No Falls in past year Last assessed Fall Risk: 07/02/25 Dental Screening Dental Screen Date: 07/02/25 Did you have a dental visit in the last 12 months?: Yes Did you have a dental problem in the last 6 months where you did not have access to dental care?: No Was dental information given to patient?: Patient has dentist HPI 6 Months labs, bp HPI Details Patient is a 69-year-old male with a significant past medical history of former smoker (<5 years), hypertension, hyperlipidemia, anxiety, depression, and CAD, s/p PCI with placement of stent who presents today for a follow up. He did message me in the portal prior to today's appointment regarding feeling somewhat tired and wheezing. He states that the albuterol made a significant difference. He used it a couple times and that resolved the wheezing. He states sometimes he gets a little reactive airway especially related to humidity and smoke. With the [employer] he noticed that this had flared. The albuterol significantly helped and now he has not really needed to use it. In regards to the fatigue he states that it feels like this may just be a normal tired feeling. He sleeps through the night without difficulty. Minimally snores. No witnessed apneic events and states that he does not want a sleep study workup. He says that he overall wakes up feeling well rested and ready for the day. He says he is only tired if he sits on the couch and does not have anything planed. He denies any exertional symptoms denies any weight changes. States that he is always around 166 at home. His appetite is the same and he is not limited at home. No chest pain, shortness on breath or palpitations. No nausea or vomiting. CV: His blood pressure today in the office is 138/68. He is currently on aspirin, atorvastatin 40 mg, and losartan 50 mg. Denies needing to use nitro. He is following with Dr. Guo. He is s/p LAD stent 02/03/2024. He did just follow with cardiology and had an echo which was overall WNL and unchanged. Pulm: rarely has to use albuterol Psych: States that his anxiety and depression are well-controlled with lorazepam as needed. He gets 1-2 prescriptions a year of the lorazepam. He typically gets it filled in the summertime because he gets anxious with traveling. They do a lot of traveling in the summer and go camping. Needs refill today. Endo: He is a prediabetic with his last A1c of 5.7 and this has been unchanged. Colonoscopy: Due this year. States that he was called by [facility] but never followed up. PSA: WNL -june 2024 [facility] Medical History (Updated 07/02/25 @ 08:45 by Nga Thomas PA-C) Palpitations Seasonal allergies Onychomycosis Asthma Former smoker Generalized anxiety disorder with panic attacks IFG (impaired fasting glucose) CAD, multiple vessel Hyperlipidemia HTN (hypertension), benign Surgical History S/P coronary artery stent placement Family History Mother Asthma HTN (hypertension) Hypercholesteremia Social History (Updated 07/02/25 @ 08:32 by Margarita Cooper CMA) Housing: House Alcohol intake: current Patient Tobacco Use Status: Former Tobacco user Cigarette Packs Per Day: 0.5 Years Smoked: 2 years quit 47 years ago e-Cigarette/Vaping Use: Never Used Substance Use Type: Former Substance User and Marijuana service: Yes Current occupational status: employed Current occupation: self employed Current occupational exposures/hazards: No Cognitive needs: No Hearing needs: No Vision needs: No Questionnaire Thrive Questionnaire Date Thrive assessed: 12/24/24 I am a: Patient What is your living situation today?: I have a steady place to live Within the past 12 months, did the food you bought not last and you didn't have the money to get more?: Never true Within the past 12 months, did you worry whether your food would run out before you got money to buy more?: Never true Do you have trouble paying for medicines?: No Do you have trouble getting transportation to medical appointments?: No Do you have trouble paying your heating and electricity bill?: No Do you have trouble taking care of your child, family member or friend?: No Do you have trouble with day-to-day activities such as bathing, preparing meals, shopping, managing finances, etc.?: No Are you currently unemployed and looking for a job?: No Are you interested in more education?: No Please select the resources that you would like help with: None Currently or been in a relationship where the following occur: No concerns reported THRIVE Score: 0 AUDIT C Alcohol Use Questionnaire (AUDIT-C) 1. How often do you have a drink containing alcohol?: 2-3 times a week (Once a week) 2. How many drinks containing alcohol do you have on a typical day when you are drinking?: 1 or 2 3. How often do you have six or more drinks on one occasion?: Never Total Score: 3 MARKUS-7 AMB Questionnaire MARKUS-7 Date MARKUS - 7 assessed: 12/31/24 Source: Developed by Drs. Papi Patterson, Elizabeth Khan, Driss Marquez and colleagues, with an educational ana from [employer]. Physical exam (Primary Care) Vital Signs: Last Vital Signs Temp 98.1 F 07/02/25 08:23 Pulse 88 07/02/25 08:23 Resp 14 07/02/25 08:23 BP 138/68 07/02/25 08:23 Pulse Ox 98 07/02/25 08:23 Oxygen Delivery Method Room Air 07/02/25 08:23 BMI result Body Mass Index 25.6 Tobacco/Smoking Status: Tobacco use Status Tobacco use date assessed 07/02/25 07/02/25 08:32 Patient Tobacco Use Status Former Tobacco user 07/02/25 08:32 e-Cigarette/Vaping Use Never Used 07/02/25 08:32 Thrive Assessment: Date of Thrive Assessment Date Thrive assessed 12/24/24 07/02/25 08:32 Currently or been in a relationship where the following occur: No concerns reported Const Orientation/consciousness: patient oriented x3 HENMT Ears: hearing grossly normal bilaterally Neck Thyroid: Thyroid normal Lymphatic: no lymphadenopathy noted Resp Auscultation: clear to auscultation bilaterally Cardio Rate: regular rate Rhythm: regular rhythm Heart sounds: S1 normal heart sound present and S2 normal heart sound present GI Inspection: Yes normal to inspection Palpation (GI): Soft to palpation and Other GI palpation findings present (nontender, no cva tenderness) Auscultation: normoactive bowel sounds Rectal Exam - Male: Yes deferred Skin General skin exam: no rashes or lesions noted Neuro General: patient oriented x3, gait normal and no focal motor deficits Coding Level of Care Code Est Pt Level 4 (00737) Complex EM visit Add On G2211 Diagnoses HTN (hypertension), benign I10 Pure hypercholesterolemia E78.00 Hyperlipidemia type: pure hypercholesterolemia Generalized anxiety disorder with panic attacks F41.1; F41.0 Prediabetes R73.03 Anemia D64.9 Fatigue R53.83 Assessment & Plan Assessment & Plan (1) HTN (hypertension), benign: Code(s): I10 - Essential (primary) hypertension Category: Medical Plan: WNL. Continue current regimen (2) Hyperlipidemia: Code(s): E78.5 - Hyperlipidemia, unspecified Category: Medical Qualifiers: Hyperlipidemia type: pure hypercholesterolemia Qualified Code(s): E78.00 - Pure hypercholesterolemia, unspecified Plan: Last LDL 72. Does not tolerate higher doses of statins. (3) Generalized anxiety disorder with panic attacks: Code(s): F41.1 - Generalized anxiety disorder; F41.0 - Panic disorder [episodic paroxysmal anxiety] Category: Medical Plan: Refilled lorazepam today. Gets a couple refills a year. (4) Prediabetes: Code(s): R73.03 - Prediabetes Category: Medical Plan: Stable. (5) Anemia: Code(s): D64.9 - Anemia, unspecified Category: Medical Plan: Labs ordered to further assess this. It is very mild. No history of anemia. Stool studies ordered (6) Fatigue: Code(s): R53.83 - Other fatigue Category: Medical Plan: As above. Labs ordered. Does not want a significant workup. He will let me know if anything changes Orders: Orders Ferritin Today D64.9 - Anemia, unspecified, E78.00 - Pure hypercholesterolemia, unspecified, F41.0 - Panic disorder [episodic paroxysmal anxiety], F41.1 - Generalized anxiety disorder, I10 - Essential (primary) hypertension, R53.83 - Other fatigue, R73.03 - Prediabetes IRON PROFILE Today D64.9 - Anemia, unspecified, E78.00 - Pure hypercholesterolemia, unspecified, F41.0 - Panic disorder [episodic paroxysmal anxiety], F41.1 - Generalized anxiety disorder, I10 - Essential (primary) hypertension, R53.83 - Other fatigue, R73.03 - Prediabetes Vitamin B12 and Folate Today D64.9 - Anemia, unspecified, E78.00 - Pure hypercholesterolemia, unspecified, F41.0 - Panic disorder [episodic paroxysmal anxiety], F41.1 - Generalized anxiety disorder, I10 - Essential (primary) hypertension, R53.83 - Other fatigue, R73.03 - Prediabetes OBSX3 Today D64.9 - Anemia, unspecified, E78.00 - Pure hypercholesterolemia, unspecified, F41.0 - Panic disorder [episodic paroxysmal anxiety], F41.1 - Generalized anxiety disorder, I10 - Essential (primary) hypertension, R53.83 - Other fatigue, R73.03 - Prediabetes Prostate Specific Antigen Scr Today Z01.89 - Encounter for other specified special examinations Complete Blood Count Auto Diff Today D64.9 - Anemia, unspecified, E78.00 - Pure hypercholesterolemia, unspecified, F41.0 - Panic disorder [episodic paroxysmal anxiety], F41.1 - Generalized anxiety disorder, I10 - Essential (primary) hypertension, R53.83 - Other fatigue, R73.03 - Prediabetes Medications: New atorvastatin 40 mg PO DAILY 90 tabs 3RF Refilled lorazepam 0.5 mg PO BID PRN 60 tabs 0RF anxiety 30 days losartan 50 mg PO DAILY 90 tabs 3RF Patient Instructions: [facility], [place] [address]
--- OUTSIDE RECORDS SUMMARY | 2025-07-02 08:52 | XMS_ITS ---
Author Name [facility] Organization Unknown Care Team Organization Name Specialty Phone Email Start Date End Da te [facility] 09/19/2022 4
== END 2025-07-02 08:54 | disposition home or self-care (01) ==
LOC: HO.HMCFM 08:18
PROVIDERS: PCP Physician Assistant; Visit Provider Physician Assistant
DX: I10 Essential (primary) hypertension (principal); E78.00 Pure hypercholesterolemia, unspecified; F41.1 Generalized anxiety disorder; F41.0 Panic disorder [episodic paroxysmal anxiety]; R73.03 Prediabetes; D64.9 Anemia, unspecified; R53.83 Other fatigue

== ENCOUNTER → 2025-07-02 08:17 | Outpatient (BNVA) | payer MEDICARE, SELFPAY | PROVIDERS: PCP Physician Assistant; Visit Provider Physician Assistant | DX: I10 Essential (primary) hypertension (principal); E78.5 Hyperlipidemia, unspecified; F32.A Depression, unspecified; I25.10 Atherosclerotic heart disease of native coronary artery without angina pectoris; E78.00 Pure hypercholesterolemia, unspecified; F41.1 Generalized anxiety disorder; F41.0 Panic disorder [episodic paroxysmal anxiety]; R73.03 Prediabetes; D64.9 Anemia, unspecified | CPT/HCPCS: 99212 ==

== ENCOUNTER 2025-07-23 07:01 | Outpatient (REF) | payer MEDICARE, SELFPAY ==
[2025-07-23 10:16] LABS: MANUAL DIFF FLAG NO
[2025-07-23 10:22] LABS: Hematocrit 41.5 % (42.0-52.0); Hemoglobin 13.9 g/dl (14.0-18.0); Imm Gran Abs Auto 0.01 X10*3/uL (0.00-0.03); Imm Gran Pct Auto 0.2 % (0.0-0.4); Lymphocytes Absolute Auto 1.3 X10*3/uL (1.2-4.9); Mean Corpuscular HGB Conc 33.5 g/dl (31.0-36.0); Mean Corpuscular Hemoglobin 32.1 pg (27.0-33.0); Mean Corpuscular Volume 95.8 fL (80.0-98.0); NRBC Abs Auto 0.000 X10*3/uL (0.0-0.012); NRBC Pct Auto 0.0 /100WBC (0.0-0.2); Platelet Count 223 X10*3/uL (160-400); Red Blood Count 4.33 X10*6/uL (4.60-5.80); White Blood Count 5.0 X10*3/uL (4.8-10.8)
[2025-07-23 11:35] LABS: Iron 135 mcg/dL (45-160); Percent Iron Saturation 48 % (15-50); Total Iron Binding Capacity 280 mcg/dL (228-428); Unsaturated Iron Binding 145 ug/dL
[2025-07-23 11:39] LABS: Ferritin 124 ng/mL (20-250)
[2025-07-23 11:50] LABS: Folate 11.4 ng/mL (> or = 4.0); Vitamin B12 363 pg/mL (200-900)
== END 2025-07-23 07:02 | disposition home or self-care (01) ==
LOC: HO.HMGCLDS 07:01
PROVIDERS: PCP Physician Assistant; Visit Provider Physician Assistant
DX: I10 Essential (primary) hypertension (principal); D64.9 Anemia, unspecified; R53.83 Other fatigue; F41.1 Generalized anxiety disorder; F41.0 Panic disorder [episodic paroxysmal anxiety]; R73.03 Prediabetes; E78.00 Pure hypercholesterolemia, unspecified; Z01.89 Encounter for other specified special examinations; Z12.5 Encounter for screening for malignant neoplasm of prostate
CPT/HCPCS: 36415; 82607; 82728; 82746; 83540; 84153; 85025

== ENCOUNTER 2025-10-26 06:12 | Outpatient (REF) | payer MEDICARE, SELFPAY ==
[2025-10-26 10:04] LABS: MANUAL DIFF FLAG NO
[2025-10-26 10:24] LABS: Hematocrit 41.1 % (42.0-52.0); Hemoglobin 13.8 g/dl (14.0-18.0); Imm Gran Abs Auto 0.01 X10*3/uL (0.00-0.03); Imm Gran Pct Auto 0.2 % (0.0-0.4); Lymphocytes Absolute Auto 1.6 X10*3/uL (1.2-4.9); Mean Corpuscular HGB Conc 33.6 g/dl (31.0-36.0); Mean Corpuscular Hemoglobin 32.2 pg (27.0-33.0); Mean Corpuscular Volume 95.8 fL (80.0-98.0); NRBC Abs Auto 0.000 X10*3/uL (0.0-0.012); NRBC Pct Auto 0.0 /100WBC (0.0-0.2); Platelet Count 239 X10*3/uL (160-400); Red Blood Count 4.29 X10*6/uL (4.60-5.80); White Blood Count 5.1 X10*3/uL (4.8-10.8)
[2025-10-26 10:48] LABS: Alanine Aminotransferase 22 U/L (0-40); Albumin Level 4.5 g/dL (3.5-5.0); Alkaline Phosphatase 61 U/L (39-117); Anion Gap 9 (12-20); Aspartate Amino Transferase 28 U/L (5-37); Blood Urea Nitrogen 17 mg/dL (9-16); Calcium 9.1 mg/dL (8.4-10.2); Carbon Dioxide 27 mmol/L (22-29); Chloride 109 mmol/L (96-108); Cholesterol 107 mg/dL (<200); Estimated Glomerular Filt Rate > 60; HDL Cholesterol 34 mg/dL (>40); Potassium 3.9 mmol/L (3.3-5.1); Sodium 141 mmol/L (135-145); Total Protein 6.5 g/dL (6.5-8.0); Triglycerides 68 mg/dL (<150)
== END 2025-10-26 06:13 | disposition home or self-care (01) ==
LOC: HO.HMGCLDS 06:12
PROVIDERS: PCP Physician Assistant; Visit Provider Physician Assistant
DX: I25.10 Atherosclerotic heart disease of native coronary artery without angina pectoris (principal); I10 Essential (primary) hypertension; E78.00 Pure hypercholesterolemia, unspecified; R73.03 Prediabetes; R73.01 Impaired fasting glucose; M79.10 Myalgia, unspecified site
CPT/HCPCS: 36415; 80053; 80061; 82550; 83036; 84443; 85025